=== PATIENT | female | born 1960 | race Caucasian/White ===

== ENCOUNTER → 2016-07-06 | Outpatient (CLI) | payer OTHER ==
[~2016-07-06] VITALS: Ht 157.5 cm; Wt 49.0 kg
[~2016-07-06] MED LIST: CALCIUM 500 +1 EAC4 PO; DEXILANT30 MG PO; FLEXERIL10 MG PO; FLONASE ALLERG9.9 ML BOTH NARES; FOSAMAX70 MG PO; MOTRIN600 MG PO; VITAMIN D-32000 UNI2 PO; ZANTAC150 MG PO
[2016-07-06 13:09] VITALS: BP 139/69
== END | disposition home or self-care (01) ==
LOC: IVINF 07-01 09:00
DX: M81.0 Age-related osteoporosis without current pathological fracture (principal); Z87.19 Personal history of other diseases of the digestive system; Z88.4 Allergy status to anesthetic agent; Z88.6 Allergy status to analgesic agent
CPT/HCPCS: 96365; J3489